=== PATIENT | female | born 1960 | race Caucasian/White ===

== ENCOUNTER 2017-01-30 04:23 | Emergency (ER) | payer BC ==
[~2017-01-30] VITALS: Ht 160 cm; Wt 62.9 kg
[~2017-01-30 04:23] MED LIST: ALPR1TAB2 PO; AMIT150T PO; AZIT500T77 PO; CEFD300C37 PO; GABA300C10 PO; HYDR-3307 PO; INSU100I29 SC; INSU100V SC; LINA5TAB PO; LOSA25TA5 PO; PARO40TA45 PO; PIOG15TA9 PO; RANI150T8 PO
[2017-01-30] MEDS ORDERED: FAMOTIDINE 20 MG/2 ML ONE (04:46)
[2017-01-30] MEDS ORDERED: SODIUM CHLORIDE 0.9% 1,000ML IVBOLUS ONE (05:00)
[2017-01-30] MEDS ORDERED: FAMOTIDINE 20 MG/2 ML IVP ONE (05:00)
[2017-01-30 06:01] LABS: ASPARTATE AMINO TRANSFERASE 12 U/L (15-37); BLOOD UREA NITROGEN 14 mg/dL (7-18)
[2017-01-30 06:32] VITALS: BP 117/65
== END 2017-01-30 06:33 | disposition home or self-care (01) ==
LOC: ED 05:45
DX: K52.9 Noninfective gastroenteritis and colitis, unspecified (principal); G89.29 Other chronic pain; E11.65 Type 2 diabetes mellitus with hyperglycemia; I10 Essential (primary) hypertension; Z79.4 Long term (current) use of insulin; Z98.51 Tubal ligation status
CPT/HCPCS: 36415; 80053; 81003; 85025; 96361; 96374; 99285; J7030; S0028